=== PATIENT | female | born 1960 | race Caucasian/White ===

== ENCOUNTER 2019-03-21 05:04 | Inpatient (IN) | payer MEDICAID ==
[2019-03-08 16:52] LABS: BASOPHILS # (AUTO) 0.1 X10'3 (0-0.2); BASOPHILS % (AUTO) 1.1 % (0-1); EOSINOPHILS # (AUTO) 0.1 X10'3 (0-0.9); EOSINOPHILS % (AUTO) 0.9 % (0-6); LYMPHOCYTES # (AUTO) 2.2 X10'3 (1.1-4.8); MEAN CORPUSCULAR HEMOGLOBIN 25.3 PG (27.0-31.0); MEAN CORPUSCULAR HGB CONC 32.7 g/dL (33.0-36.5); MEAN CORPUSCULAR VOLUME 77.4 FL (78-98); MEAN PLATELET VOLUME 8.8 FL (7.4-10.4); MONOCYTES # (AUTO) 0.7 X10'3 (0-0.9); MONOCYTES % (AUTO) 7.9 % (2-12); NEUTROPHILS # (AUTO) 5.3 X10'3 (1.8-7.7); NEUTROPHILS % (AUTO) 64.1 % (42-75); PRE OP HEMOGLOBIN 12.8 g/dL (12.0-16.0); PRE OP PLATELET COUNT 258 X10'3 (140-440); RED BLOOD COUNT 5.04 X10'6 (4.20-5.60); RED CELL DISTRIBUTION WIDTH 16.1 % (11.5-14.5)
[2019-03-08 16:59] LABS: ALBUMIN 3.8 G/DL (3.4-5.0); ALBUMIN/GLOBULIN RATIO 1.2 (1.1-1.5); ALKALINE PHOSPHATASE 78 IU/L (46-116); BLOOD UREA NITROGEN 12 MG/DL (7-18); BUN/CREATININE RATIO 12.8 (6.6-38.0); CALCIUM 9.3 MG/DL (8.5-10.1); CHLORIDE 106 MMOL/L (99-107); CREATININE 0.94 MG/DL (0.40-0.90); PRE OP ALT 24 U/L (30-65); PRE OP ANION GAP 7 (8-16); PRE OP AST 12 U/L (10-37); PRE OP BILIRUB, TOTAL 0.3 MG/DL (0.0-1.0); PRE OP GLUCOSE 96 MG/DL (70-104); PRE OP SODIUM 143 MMOL/L (135-145); eGFR 61 ML/MIN
[2019-03-08 17:07] LABS: PRE OP POTASSIUM 3.1 MMOL/L (3.4-5.1)
[~2019-03-21] VITALS: Ht 165.1 cm; Wt 108.9 kg
[~2019-03-21 05:04] MED LIST: ATOR40TA PO; GLYB2.5T4 PO; HYDR25TA4 PO; LISI-604 PO; ONDA4TAB11 PO; ringers solution, lacted 1,000 ML IV SCH
[2019-03-21] MEDS ORDERED: vancomycin inj 1,500 MG in normal saline 300ml IV soln IV ONE (05:30)
[2019-03-21] MEDS ORDERED: cefazolin/dext.iso 2gm/100ml 100 ML IV ONE (05:30)
[2019-03-21] MEDS ORDERED: famotidine 10mg tablet PO ONE (05:30)
[2019-03-21] MEDS ORDERED: mupirocin 2% nasal ointment 1gm UD NS STA (06:13)
--- NOTE | 2019-03-21 07:06 | NUR ---
PT ARRIVED TO [facility] WITH AN OPEN SORE 4 INCHES DISTAL TO THE SURGICAL KNEE. DR VAZQUEZ NOTIFED. DR VAZQUEZ CANCELLED SURGERY AND GAVE ORDERS TO INSTRUCT PATIENT TO USE NEOSPORIN BID AND COVER WITH BANDAGE. SHE IS TO CALL HIS OFFICE TO RESCHEDULE. WRITTEN DISCHARGE INSTRUCTIONS GIVEN AND APPLIED FIRST DOSE OF OINTMENT AND PROVIDED PT WITH EXTRA BANDAIDS. ATTEMPTED TO EXPLAIN TO PATEINT THE RISK OF INFECTION ASSOCIATED WITH OPEN SORE. PT DID NOT VERBALIZE UNDERSTANDING AFTER MULTIPLE ATTEMPTS.
--- NOTE | 2019-03-21 07:09 | NUR ---
OFFERED PT TO WAIT FOR DR VAZQUZE IN WAITING ROOM SO SHE COULD SPEAK TO HIM PERSONALLY BUT SHE DECLINED.
== END 2019-03-21 07:10 | disposition home or self-care (01) | DRG 351 ==
LOC: PAS IN 05:04 → EDSTATUS 07:30
PROVIDERS: ADMIT Orthopaedic Surgery; ATTEND Orthopaedic Surgery
DX: M17.12 Unilateral primary osteoarthritis, left knee (principal); E11.9 Type 2 diabetes mellitus without complications; M25.562 Pain in left knee; Z53.09 Procedure and treatment not carried out because of other contraindication; I10 Essential (primary) hypertension
CPT/HCPCS: 36415; 80053; 85025; 87081; J3370; J7120